=== PATIENT | female | born 1995 | race Caucasian/White ===

== ENCOUNTER 2019-05-07 13:36 | Emergency (ER) | payer BC ==
[2019-05-07] MEDS ORDERED: Sodium Chloride 0.9% 10 ML Syringe FLUSH PRN (14:18)
[2019-05-07] MEDS ORDERED: Metoclopramide 10 MG/2 ML SDV IVPUSH ONE (14:18)
[2019-05-07] MEDS ORDERED: Lactated Ringers 1,000 ML IV ONE (14:18)
[2019-05-07] MEDS ORDERED: HYDROmorphone 1 MG/ML Syringe IVPUSH ONE (14:18)
[2019-05-07] MEDS ORDERED: Diatrizoate Meglumine/Diatrizoate Sodium 37% 120 ML Bottle PO ONE (15:11)
[2019-05-07] MEDS ORDERED: Sodium Chloride 0.9% 10 ML Syringe FLUSH ONE (15:11)
[2019-05-07] MEDS ORDERED: Iopamidol 612 MG/ML 100 ML Bottle IVPUSH ONE (15:11)
--- NOTE | 2019-05-07 15:29 | EDM.PDOC ---
ED HPI GENERAL MEDICAL PROBLEM - General Chief Complaint: Abdominal Pain Stated Complaint: ABDOMINAL PAIN Time Seen by Provider: 05/07/19 14:13 Source of Information: Reports: Patient History Limitations: Reports: No Limitations - History of Present Illness INITIAL COMMENTS - FREE TEXT/NARRATIVE: 23-year-old female presents for evaluation and treatment of abdominal pain. Patient reports that the pain started suddenly last night. States that it started around her periumbilical region. Is now radiating into her right lower quadrant and right flank. Describes the stomach pain as cramping to the abdomen and dull achiness to the right side. Has taken advil with no relief. She reports associated symptoms of nausea and a decreased appetite. States that movement seems to greatly exacerbate the abdominal pain. No fevers, vomiting or urinary symptoms. Last bowel movement was Wednesday. No diarrhea and no recent blood in the stool. Patient no previous surgeries to her abdomen. Last intake was last around suppertime. LMP just ended. 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 1000 mg Right Abdomen Pain Score (Numeric/FACES): 5 - Related Data Allergies Allergy/AdvReac Type Severity Reaction Status Date / Time tree nut Allergy Airway Verified 10/19/16 16:04 Tightness almonds Allergy Airway Uncoded 10/19/16 16:04 Tightness peanuts Allergy Airway Uncoded 10/19/16 16:04 Tightness Home Meds: Home Meds Naproxen 500 mg PO BID PRN #20 tablet 10/19/16 [Rx] FLUoxetine HCl [Prozac] 0 mg PO DAILY 05/07/19 [History] metFORMIN [Glucophage XR] 1,000 mg PO DAILY 05/07/19 [History] Past Medical History - Past Health History Medical/Surgical History: Denies Medical/Surgical History Musculoskeletal History: Reports: Back Pain, Chronic Psychiatric History: Reports: Anxiety Social & Family History - Tobacco Use Smoking Status *Q: Current Every Day Smoker Years of Tobacco use: 10 Packs/Tins Daily: 0.4 - Caffeine Use Caffeine Use: Reports: Coffee, Tea - Recreational Drug Use Recreational Drug Use: No - Living Situation & Occupation Living situation: Reports: with Significant Other Occupation: Employed ED ROS GENERAL - Review of Systems Review Of Systems: See Below Constitutional: Reports: Chills, Decreased Appetite. Denies: Fever GI/Abdominal: Reports: Abdominal Pain (RLQ and right flank), Nausea. Denies: Vomiting : Reports: Flank Pain (right). Denies: Dysuria ED EXAM, GI/ABD - Physical Exam Exam: See Below Exam Limited By: No Limitations General Appearance: Alert, WD/WN, No Apparent Distress Respiratory/Chest: No Respiratory Distress, Lungs Clear, Normal Breath Sounds Cardiovascular: Normal Peripheral Pulses, Regular Rate, Rhythm, No Murmur GI/Abdominal Exam: Normal Bowel Sounds, Soft, Guarding, Tender (RLQ at [place]urn[place] point), Other (pain with heel percussion, + meli and obturator sign) . No: Rebound Neurological: Alert, Oriented, Normal Cognition Psychiatric: Normal Affect, Normal Mood Skin Exam: Warm, Dry, Normal Color Course - Vital Signs Last Recorded V/S: Last Vital Signs Temp 97.1 F 05/07/19 18:50 Pulse 60 05/07/19 18:50 Resp 16 05/07/19 18:50 BP 101/79 05/07/19 18:50 Pulse Ox 96 05/07/19 18:50 - Orders/Labs/Meds Labs: Laboratory Tests 05/07/19 05/07/19 05/07/19 Range/Units 14:40 14:40 14:40 WBC 6.91 (3.98-10.04) K/mm3 RBC 4.94 (3.98-5.22) M/mm3 Hgb 15.1 (11.2-15.7) gm/L Hct 44.0 (34.1-44.9) % MCV 89.1 (79.4-94.8) fl MCH 30.6 (25.6-32.2) pg MCHC 34.3 (32.2-35.5) g/dl RDW Std Deviation 42.4 (36.4-46.3) fL Plt Count 353 (182-369) K/mm3 MPV 9.8 (9.4-12.3) fl Neutrophils % (Manual) 56 (40-60) % Band Neutrophils % 0 (0-10) % Lymphocytes % (Manual) 35 (20-40) % Atypical Lymphs % 0 % Monocytes % (Manual) 9 (2-10) % Eosinophils % (Manual) 0 L (0.7-5.8) % Basophils % (Manual) 0 L (0.1-1.2) Platelet Estimate Adequate RBC Morph Comment Normal Sodium 139 (136-145) mEq/L Potassium 3.9 (3.5-5.1) mEq/L Chloride 105 (98-107) mEq/L Carbon Dioxide 24 (21-32) mEq/L Anion Gap 13.9 (5-15) BUN 9 (7-18) mg/dL Creatinine 0.7 (0.55-1.02) mg/dL Est Cr Clr Drug Dosing 106.09 mL/min Estimated GFR (MDRD) > 60 (>60) mL/min BUN/Creatinine Ratio 12.9 L (14-18) Glucose 88 (74-106) mg/dL Calcium 9.0 (8.5-10.1) mg/dL Total Bilirubin 0.6 (0.2-1.0) mg/dL AST 16 (15-37) U/L ALT 18 (14-59) U/L Alkaline Phosphatase 70 (46-116) U/L C-Reactive Protein < 0.2 (<1.0) mg/dL Total Protein 6.6 (6.4-8.2) g/dl Albumin 3.6 (3.4-5.0) g/dl Globulin 3.0 gm/dL Albumin/Globulin Ratio 1.2 (1-2) Lipase 92 (73-393) U/L HCG, Qual Negative (NEGATIVE) Urine Color (Yellow) Urine Appearance (Clear) Urine pH (5.0-8.0) Ur Specific Lovely (1.005-1.030) Urine Protein (Negative) Urine Glucose (UA) (Negative) Urine Ketones (Negative) Urine Occult Blood (Negative) Urine Nitrite (Negative) Urine Bilirubin (Negative) Urine Urobilinogen (0.2-1.0) Ur Leukocyte Esterase (Negative) Urine RBC (0-5) /hpf Urine WBC (0-5) /hpf Ur Epithelial Cells (0-5) /hpf Urine Bacteria (FEW) /hpf Urine Mucus (FEW) /hpf 05/07/19 Range/Units 18:25 WBC (3.98-10.04) K/mm3 RBC (3.98-5.22) M/mm3 Hgb (11.2-15.7) gm/L Hct (34.1-44.9) % MCV (79.4-94.8) fl MCH (25.6-32.2) pg MCHC (32.2-35.5) g/dl RDW Std Deviation (36.4-46.3) fL Plt Count (182-369) K/mm3 MPV (9.4-12.3) fl Neutrophils % (Manual) (40-60) % Band Neutrophils % (0-10) % Lymphocytes % (Manual) (20-40) % Atypical Lymphs % % Monocytes % (Manual) (2-10) % Eosinophils % (Manual) (0.7-5.8) % Basophils % (Manual) (0.1-1.2) Platelet Estimate RBC Morph Comment Sodium (136-145) mEq/L Potassium (3.5-5.1) mEq/L Chloride (98-107) mEq/L Carbon Dioxide (21-32) mEq/L Anion Gap (5-15) BUN (7-18) mg/dL Creatinine (0.55-1.02) mg/dL Est Cr Clr Drug Dosing mL/min Estimated GFR (MDRD) (>60) mL/min BUN/Creatinine Ratio (14-18) Glucose (74-106) mg/dL Calcium (8.5-10.1) mg/dL Total Bilirubin (0.2-1.0) mg/dL AST (15-37) U/L ALT (14-59) U/L Alkaline Phosphatase (46-116) U/L C-Reactive Protein (<1.0) mg/dL Total Protein (6.4-8.2) g/dl Albumin (3.4-5.0) g/dl Globulin gm/dL Albumin/Globulin Ratio (1-2) Lipase (73-393) U/L HCG, Qual (NEGATIVE) Urine Color Light yellow (Yellow) Urine Appearance Clear (Clear) Urine pH 6.5 (5.0-8.0) Ur Specific Lovely 1.010 (1.005-1.030) Urine Protein Negative (Negative) Urine Glucose (UA) Negative (Negative) Urine Ketones Negative (Negative) Urine Occult Blood Trace-intact H (Negative) Urine Nitrite Negative (Negative) Urine Bilirubin Negative (Negative) Urine Urobilinogen 0.2 (0.2-1.0) Ur Leukocyte Esterase Negative (Negative) Urine RBC 0-5 (0-5) /hpf Urine WBC Not seen (0-5) /hpf Ur Epithelial Cells 0-5 (0-5) /hpf Urine Bacteria Not seen (FEW) /hpf Urine Mucus Not seen (FEW) /hpf Meds: Medications Discontinued Medications Generic Name Dose Route Start Last Admin Trade Name Freq PRN Reason Stop Dose Admin Diatrizoate Meglum/Diatrizoate Sod 90 ml 05/07/19 15:11 05/07/19 16:14 Gastrografin 37% PO 05/07/19 15:12 90 ml ONETIME ONE Administration Hydromorphone HCl 1 mg 05/07/19 14:18 05/07/19 14:45 Dilaudid IVPUSH 05/07/19 14:19 1 mg ONETIME ONE Administration Lactated Ringer's 1,000 mls @ 999 mls/hr 05/07/19 14:18 05/07/19 14:47 Ringers, Lactated IV 05/07/19 15:18 999 mls/hr .BOLUS ONE Administration Iopamidol 100 ml 05/07/19 15:11 05/07/19 16:10 Isovue-300 (61%) IVPUSH 05/07/19 15:12 100 ml ONETIME ONE Administration Ketorolac Tromethamine 30 mg 05/07/19 17:23 05/07/19 18:09 Toradol IVPUSH 05/07/19 17:24 30 mg ONETIME ONE Administration Metoclopramide HCl 7.5 mg 05/07/19 14:18 05/07/19 14:43 Reglan IVPUSH 05/07/19 14:19 7.5 mg ONETIME ONE Administration Sodium Chloride 10 ml 05/07/19 14:18 05/07/19 14:40 Saline Flush FLUSH 10 ml ASDIRECTED PRN Administration Keep Vein Open Sodium Chloride 10 ml 05/07/19 15:11 05/07/19 16:14 Saline Flush FLUSH 05/07/19 15:12 10 ml ONETIME ONE Administration - Radiology Interpretation Free Text/Narrative:: CT abdomen and pelvis Technique: Multiple axial sections were obtained from above the dome of the diaphragm inferiorly through the pubic symphysis. Intravenous and oral contrast was utilized. Comparison: Previous abdominal and pelvic CT study of 08/17/13. Findings: Visualized lung bases show nothing acute. Liver contains no focal abnormality. Gallbladder contains no calcified gallstones. Spleen appears within normal limits. Adrenal glands show no nodule. Pancreas is within normal limits. Kidneys show symmetric contrast enhancement without hydronephrosis or mass. Aorta shows no aneurysm. No retroperitoneal adenopathy or mesenteric abnormalities are seen. Appendix is seen which is normal in size. No pelvic mass or adenopathy is seen. No free fluid or inflammatory change is seen. No abdominal wall hernia is appreciated. Bone window settings were obtained which show spondylolytic defects at L5-S1 without spondylolisthesis. Impression: 1. Spondylitic defects at L5-S1 with no spondylolisthesis. 2. CT study of the abdomen and pelvis shows nothing acute. No significant change is appreciated from previous CT exam. - Re-Assessments/Exams Free Text/Narrative Re-Assessment/Exam: 05/07/19 18:30 Discussed labs and imaging with the patient. At this point etiology of her pain is not quite clear. Discussed obtaining a transvaginal ultrasound to rule out ovarian etiology. No abnormalities were appreciated on CT. Patient reports she has a history of PCOS and has had ruptured cysts in the past, this dose not feel similar. She does not feel this is ovarian in etiology, declines transvaginal ultrasound. Her pain is higher than I would expect for an ovarian cyst. Will discharge home with recommendations to follow-up in the clinic. Return if symptoms change or worsen. Offered medication for pain at home, she declined. Discharge instructions as documented. Departure - Departure Time of Disposition: 18:42 Disposition: Home, Self-Care 01 Condition: Fair Clinical Impression: Abdominal pain - Discharge Information *PRESCRIPTION DRUG MONITORING PROGRAM REVIEWED*: No *COPY OF PRESCRIPTION DRUG MONITORING REPORT IN PATIENT ALEXY: No Instructions: Abdominal Pain, Adult, [id number] Referrals: PCP,None [Primary Care Provider] - Forms: ED Department Discharge Additional Instructions: OTC tylenol or motrin as needed for pain. Recommend a probiotic, these are available OTC. Recommend clear fluids and a bland diet as tolerated. Inman diet recommendations include bread, rice, applesauce, toast, bananas, etc. Follow-up with your PCP this week for a recheck of your symptoms. Please return to the ER should your symptoms change or worsen.
--- NOTE | 2019-05-07 16:34 | CT ---
CT abdomen and pelvis Technique: Multiple axial sections were obtained from above the dome of the diaphragm inferiorly through the pubic symphysis. Intravenous and oral contrast was utilized. Comparison: Previous abdominal and pelvic CT study of 08/17/13. Findings: Visualized lung bases show nothing acute. Liver contains no focal abnormality. Gallbladder contains no calcified gallstones. Spleen appears within normal limits. Adrenal glands show no nodule. Pancreas is within normal limits. Kidneys show symmetric contrast enhancement without hydronephrosis or mass. Aorta shows no aneurysm. No retroperitoneal adenopathy or mesenteric abnormalities are seen. Appendix is seen which is normal in size. No pelvic mass or adenopathy is seen. No free fluid or inflammatory change is seen. No abdominal wall hernia is appreciated. Bone window settings were obtained which show spondylolytic defects at L5-S1 without spondylolisthesis. Impression: 1. Spondylitic defects at L5-S1 with no spondylolisthesis. 2. CT study of the abdomen and pelvis shows nothing acute. No significant change is appreciated from previous CT exam. Diagnostic code #2
[2019-05-07] MEDS ORDERED: Ketorolac 30 MG/ML SDV IVPUSH ONE (17:23)
[2019-05-07 18:56] VITALS: BP 101/79
== END 2019-05-07 18:50 | disposition home or self-care (01) ==
LOC: JD.ED 13:36
DX: R10.31 Right lower quadrant pain (principal); F17.210 Nicotine dependence, cigarettes, uncomplicated; F41.9 Anxiety disorder, unspecified; Z79.899 Other long term (current) drug therapy; Z91.018 Allergy to other foods; Z91.010 Allergy to peanuts
CPT/HCPCS: 36415; 74177; 80053; 81001; 83690; 84703; 85007; 85027; 86140; 96361; 96374; 96375; 99284; J1170; J1885; J2765; J7120; Q9963; Q9967

== ENCOUNTER 2021-02-11 13:34 | Emergency (ER) | payer OTHER ==
[2021-02-11] MEDS ORDERED: Ketorolac 30 MG/ML SDV IVPUSH ONE (13:47)
[2021-02-11] MEDS ORDERED: Orphenadrine 100 MG Tab.ER PO ONE (13:47)
[2021-02-11] MEDS ORDERED: Dexamethasone 10 MG/ML SDV IVPUSH ONE (13:51)
--- NOTE | 2021-02-11 13:55 | EDM.PDOC ---
ED HPI GENERAL MEDICAL PROBLEM - General Chief Complaint: Back Pain or Injury Stated Complaint: [facility] Time Seen by Provider: 02/11/21 13:39 Source of Information: Reports: Patient, EMS Notes Reviewed, RN Notes Reviewed History Limitations: Reports: No Limitations - History of Present Illness INITIAL COMMENTS - FREE TEXT/NARRATIVE: Patient is a 25-year-old female who presents to the ED for evaluation of her acute low back pain. Patient presents to the ER via [facility]. Patient notes that she has had on and off pains with her back for some time however she developed back tightness yesterday, and she notes that today she had trouble even getting up out of bed, she states that it is very very painful to bear any sort of weight at all. She notes some pain that is shooting into her left leg. She states that she can normally go to the chiropractor, and get some massages and this seems to take care of most of it. 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 She denies any trauma to the area, or any near slips trips or falls. She denies any urinary or fecal incontinence, and she has no saddle anesthesia. Primary care provider is Vilma Morse. Patient denies any other sick-like symptoms, fever/chills, cough/shortness of breath, nausea/vomiting/diarrhea. Patient further denies any chance of on today's visit. 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 (with 50mcg Fentanyl given by EMS), See EMS Report Back Pain Score (Numeric/FACES): 8 - Related Data Allergies Allergy/AdvReac Type Severity Reaction Status Date / Time tree nut Allergy Airway Verified 02/11/21 13:46 Tightness peanuts Allergy Airway Uncoded 02/11/21 13:46 Tightness Home Meds: Home Meds FLUoxetine HCl [Prozac] 0 mg PO DAILY 05/07/19 [History] Acetaminophen/oxyCODONE [Percocet 325-5 MG] 1 each PO Q6H PRN #12 tab 02/11/21 [Rx] DULoxetine [Cymbalta] 30 mg PO DAILY 02/11/21 [History] Diclofenac Sodium [Voltaren] 75 mg PO BIDMEALS #14 tab.cr 02/11/21 [Rx] Orphenadrine [Norflex] 100 mg PO BID PRN #20 tab 02/11/21 [Rx] predniSONE 20 mg PO ASDIRECTED #15 tab 02/11/21 [Rx] Past Medical History - Past Health History Medical/Surgical History: Denies Medical/Surgical History Musculoskeletal History: Reports: Back Pain, Chronic Psychiatric History: Reports: Anxiety Social & Family History - Caffeine Use Caffeine Use: Reports: Coffee, Tea - Living Situation & Occupation Living situation: Reports: with Significant Other Occupation: Employed ED ROS GENERAL - Review of Systems Review Of Systems: Comprehensive ROS is negative, except as noted in HPI. ED EXAM,LOWER BACK PAIN/INJURY - Physical Exam Exam: See Below Exam Limited By: No Limitations General Appearance: Alert, WD/WN, No Apparent Distress Respiratory/Chest: No Respiratory Distress, Lungs Clear, Normal Breath Sounds, No Accessory Muscle Use, Chest Non-Tender Cardiovascular: Normal Peripheral Pulses, Regular Rate, Rhythm, No Edema GI/Abdominal: Normal Bowel Sounds, Soft, Non-Tender, No Distention, No Mass Extremities: Normal Inspection, Normal Capillary Refill Neurological: Alert, Normal Mood/Affect, Normal Dorsiflexion, Normal Plantar Flexion, No Motor/Sensory Deficits, Straight Leg Raise (L). No: Straight Leg Raise (R), Saddle Anesthesia Psychiatric: Normal Affect, Normal Mood Skin Exam: Warm, Dry, Intact, Normal Color, No Rash Course - Vital Signs Last Recorded V/S: Last Vital Signs Temp 97.7 F 02/11/21 15:30 Pulse 70 02/11/21 15:30 Resp 16 02/11/21 15:30 BP 106/67 02/11/21 15:30 Pulse Ox 98 02/11/21 15:30 - Orders/Labs/Meds Meds: Medications Discontinued Medications Generic Name Dose Route Start Last Admin Trade Name Crispinq PRN Reason Stop Dose Admin Dexamethasone 10 mg 02/11/21 13:51 02/11/21 14:01 Dexamethasone 10 Mg/Ml Sdv IVPUSH 02/11/21 13:52 10 mg ONETIME ONE Administration Diazepam 5 mg 02/11/21 14:44 02/11/21 15:34 Diazepam 10 Mg/2 Ml Syringe IVPUSH 02/11/21 14:45 5 mg ONETIME ONE Administration Hydromorphone HCl 0.5 mg 02/11/21 14:45 02/11/21 15:36 Hydromorphone 0.5 Mg/0.5 Ml Syringe IVPUSH 02/11/21 14:46 0.5 mg ONETIME ONE Administration Hydromorphone HCl 0.5 mg 02/11/21 16:06 Hydromorphone 0.5 Mg/0.5 Ml Syringe IVPUSH 02/11/21 16:07 ONETIME ONE Ketorolac Tromethamine 30 mg 02/11/21 13:47 02/11/21 13:58 Ketorolac 30 Mg/Ml Sdv IVPUSH 02/11/21 13:48 30 mg ONETIME ONE Administration Orphenadrine Citrate 100 mg 02/11/21 13:47 02/11/21 13:57 Orphenadrine 100 Mg Tab.Er PO 02/11/21 13:48 100 mg ONETIME ONE Administration - Re-Assessments/Exams Free Text/Narrative Re-Assessment/Exam: 02/11/21 13:54 Patient presents to the ED for her acute low back pain. We will go ahead and get basic x-rays to rule out any bony abnormalities, we will give her some meds for pain management as well. 02/11/21 14:46 Patient was reassessed at bedside, and she still not able to move much at all due to the pain. X-rays were obtained and demonstrate no acute focal abnormalities appreciable myself or Dr. Rayo. He suggested trying 5 mg of Valium and 0.5 mg Dilaudid for ongoing pain management. Have ordered this to try with the patient. 02/11/21 15:03 Patient's x-ray has been read, there is no acute abnormalities appreciated. 02/11/21 16:07 Patient was given the above medications, and she was sat up at the edge of the bedside, and she can only sit up to about 45 degrees and states that she is having quite a bit of pain. We will go ahead and repeat 0.5 mg IV Dilaudid again for pain management and reassess after those meds have been given. Departure - Departure Time of Disposition: 16:43 Disposition: Home, Self-Care 01 Condition: Good Clinical Impression: Low back pain Qualifiers: Chronicity: acute Back pain laterality: left Sciatica presence: without sciatica Qualified Code(s): M54.5 - Low back pain - Discharge Information *PRESCRIPTION DRUG MONITORING PROGRAM REVIEWED*: Yes *COPY OF PRESCRIPTION DRUG MONITORING REPORT IN PATIENT ALEXY: No Prescriptions: Orphenadrine [Norflex] 100 mg PO BID PRN #20 tab PRN Reason: Spasms Acetaminophen/oxyCODONE [Percocet 325-5 MG] 1 each PO Q6H PRN #12 tab PRN Reason: Pain predniSONE 20 mg PO ASDIRECTED #15 tab Diclofenac Sodium [Voltaren] 75 mg PO BIDMEALS #14 tab.cr Instructions: Acute Back Pain, Adult Forms: ED Department Discharge Additional Instructions: You were evaluated in the ER today for your acute back pain. You were given a multitude of IV medications, along with some muscle relaxers, and you were able to gain a little bit of mobility in your back. X-ray also demonstrated no acute bony abnormalities. You have been prescribed a couple different medications and you will need to take these as directed; 1. prednisone, 1 tablet 2 times a day for 5 days, then 1 tablet once a day x5 days. 2. an anti-inflammatory, voltaren (diclofenac), 1 tablet 2 times a day with meals. 3. Norflex, muscle relaxer, 1 tablet 2 times a day as needed for spasms, 4. A prescription for a strong pain medication, Oxycodone/acetaminophen 5/325 mg, please take 1 tab every 6 hours as needed for pain not relieved by Tylenol or ibuprofen alone. Please note this medication does contain Tylenol in it, so do not take more than 4000 mg in a 24-hour time span. These medications can be addictive, so please take as few as possible to achieve adequate pain control. These meds can also be quite constipating, recommend that you increase your oral fluid intake and take a stool softener like MiraLAX while taking these medications. Do not drive while taking this medication. Please give these medications a good 48 to 72 hours to take effect. If you not feeling much better in roughly 3 days time, highly recommend you seek care for reevaluation. Please go home, trying to rest and relax and not do a lot of strenuous activity over the next few days to allow your back time to heal. You may also try ice or heat to the area as well to help provide further pain relief. Please return to the ER at any time if symptoms change or worsen. Sepsis Event Note (ED) - Evaluation Sepsis Screening Result: No Definite Risk - Focused Exam Vital Signs: Vital Signs Temp Pulse Resp BP Pulse Ox 02/11/21 15:30 97.7 F 70 16 106/67 98 02/11/21 13:38 97.8 F 77 18 133/87 94 L
[2021-02-11] MEDS ORDERED: HYDROmorphone 0.5 MG/0.5 ML Syringe IVPUSH ONE ×2 (14:45→16:06)
--- NOTE | 2021-02-11 14:48 | CR ---
Lumbar spine: AP, lateral and coned-down lateral view centered to the lumbosacral junction were obtained. Comparison: No prior lumbar spine imaging is available. Vertebral body heights and disc spaces are maintained. Pedicles are intact. Visualized transverse and spinous processes are intact. Sacroiliac joints appear within normal limits. No subluxation or fracture is appreciated. Impression: 1. Nothing acute is seen on 3 view lumbar spine study. Diagnostic code #1
[2021-02-11 17:21] VITALS: BP 115/89; PULSE 69
== END 2021-02-11 17:20 | disposition home or self-care (01) ==
LOC: JD.ED 13:34
DX: M54.5 Low back pain (principal); Z91.010 Allergy to peanuts; Z91.018 Allergy to other foods
CPT/HCPCS: 72100; 96374; 96375; 96376; 99284; A9270; J1100; J1170; J1885; J3360

== ENCOUNTER 2022-01-20 15:59 | Observation (INO) | payer OTHER ==
[2022-01-20] MEDS ORDERED: HYDROmorphone 0.5 MG/0.5 ML Syringe IVPUSH ONE (16:43)
[2022-01-20] MEDS ORDERED: Ondansetron 4 MG/2 ML SDV IVPUSH ONE (16:44)
[2022-01-20] MEDS ORDERED: Dextrose 5%-0.9% NaCl 1,000 ML IV SCH (16:45)
[2022-01-20] MEDS ORDERED: Iopamidol 612 MG/ML 100 ML Bottle IVPUSH ONE (16:53)
[2022-01-20] MEDS ORDERED: Sodium Chloride 0.9% 100 ML IV SCH (17:00)
[2022-01-20] MEDS: Sodium Chloride 0.9% 10 ML Syringe FLUSH ONE ×2 (17:32→18:24)
[2022-01-20] MEDS ORDERED: Sodium Chloride 0.9% 10 ML Syringe FLUSH ONE (18:23)
[2022-01-20] MEDS ORDERED: Ketorolac 30 MG/ML SDV IVPUSH SCH (20:00)
[2022-01-20] MEDS: Dextrose 5%-0.9% NaCl 1,000 ML IV SCH (21:28)
[2022-01-20] MEDS: HYDROmorphone 0.5 MG/0.5 ML Syringe IVPUSH PRN (21:45)
[2022-01-20] MEDS: Ondansetron 4 MG/2 ML SDV IVPUSH PRN (23:52)
[2022-01-21] MEDS: Dextrose 5%-0.9% NaCl 1,000 ML IV SCH ×2 (03:00→11:50)
[2022-01-21] MEDS: HYDROmorphone 0.5 MG/0.5 ML Syringe IVPUSH PRN ×3 (04:19→15:33)
[2022-01-21] MEDS: Ondansetron 4 MG/2 ML SDV IVPUSH PRN ×2 (07:22→15:33)
[2022-01-21] MEDS ORDERED: oxyCODONE 5 MG Tab PO PRN ×3 (08:06→16:52)
[2022-01-21] MEDS ORDERED: Acetaminophen 325 MG Tab PO PRN (08:06)
[2022-01-21] MEDS ORDERED: Simethicone 80 MG Tab.Chew PO PRN (08:07)
[2022-01-21] MEDS: Docusate Sodium 100 MG Cap PO SCH ×2 (08:46→20:15)
[2022-01-21] MEDS ORDERED: DULoxetine 30 MG Cap PO SCH ×2 (09:00→21:00)
[2022-01-21] MEDS ORDERED: oxyCODONE 5 MG Tab PO ONE (11:30)
[2022-01-21] MEDS ORDERED: FLU Vacc QS2021-22 36MOS UP/PF 60 MCG/0.5 ML Syringe IM ONE ×2 (12:00→20:30)
[2022-01-21 16:28] VITALS: BP 132/90; PULSE 78
[2022-01-21] MEDS ORDERED: Flumazenil 0.1 MG/ML 5 ML MDV ONE (20:04)
== END 2022-01-21 21:05 | disposition home or self-care (01) ==
LOC: JD.ED 15:59 → JD.MS 19:57
PROVIDERS: ADMIT Emergency Medicine; ATTEND Obstetrics & Gynecology
DX: N98.1 Hyperstimulation of ovaries (principal); F41.9 Anxiety disorder, unspecified; Z91.010 Allergy to peanuts; Z91.018 Allergy to other foods; Z98.890 Other specified postprocedural states; Z79.899 Other long term (current) drug therapy; Z20.822 Contact with and (suspected) exposure to COVID-19
CPT/HCPCS: 36415; 74177; 80048; 80053; 81001; 83735; 84703; 85025; 85027; 85610; 85730; 86140; 87635; 90471; 90686; 96374; 96375; 96376; 99285; A9270; G0378; J1170; J1885; J2405; J7042; Q9967; G0008; U0002

== ENCOUNTER 2024-02-07 16:20 | Emergency (ER) | payer OTHER ==
[2024-02-07] MEDS: Sodium Chloride 0.9% 50 ML ONE (17:16)
[2024-02-07] MEDS: Tranexamic Acid 1,000 MG/10 ML Vial IV ONE (17:16)
[2024-02-07 17:30] LABS: BASOPHILS ABSOLUTE AUTO 0.1 K/mm3 (0.0-0.2); BASOPHILS PERCENT AUTO 0.9 % (0.0-1.0); EOSINOPHILS ABSOLUTE AUTO 0.1 K/mm3 (0.0-0.4); EOSINOPHILS PERCENT AUTO 1.3 % (0.0-6.0); HEMATOCRIT 44.5 % (37.0-47.0); HEMOGLOBIN 15.5 gm/dl (12.0-16.0); IMMATURE GRAN ABSOLUTE AUTO 0.01 K/mm3 (0.00-0.05); IMMATURE GRAN PERCENT AUTO 0.1 % (0.0-0.4); LYMPHOCYTES PERCENT AUTO 43.8 % (24.0-44.0); MEAN CORPUSCULAR HEMOGLOBIN 30.1 pg (28.0-32.0); MEAN CORPUSCULAR HGB CONC 34.8 g/dl (32.0-36.0); MEAN CORPUSCULAR VOLUME 86.4 fl (83.0-99.0); MEAN PLATELET VOLUME 9.8 fl (9.4-12.3); MONOCYTES ABSOLUTE AUTO 0.6 K/mm3 (0.0-0.8); MONOCYTES PERCENT AUTO 8.9 % (0.0-8.0); PLATELET COUNT,PLT 343 K/mm3 (150-400); RED BLOOD CELL COUNT 5.15 M/mm3 (4.10-5.30); WHITE BLOOD CELL COUNT,WBC 6.76 K/mm3 (3.9-11.3)
[2024-02-07 17:47] LABS: A/G RATIO 1.2 (1-2); ALBUMIN 4.1 g/dl (3.4-5.0); ANION GAP 14.8 (5-15); BILIRUBIN TOTAL 0.8 mg/dL (0.2-1.0); BUN/CREATININE RATIO 8.9 (14-18); CREATININE 0.9 mg/dL (0.55-1.02); EST CRCL DRUG DOSING (CG) 78.93 mL/min; POTASSIUM,K 3.8 mEq/L (3.5-5.1); PROTEIN TOTAL,TP 7.6 g/dl (6.4-8.2)
[2024-02-07 18:38] VITALS: BP 118/87; PULSE 87
== END 2024-02-07 18:37 | disposition home or self-care (01) ==
LOC: JD.ED 16:20
DX: O20.9 Hemorrhage in early pregnancy, unspecified (principal); Z3A.00 Weeks of gestation of pregnancy not specified
CPT/HCPCS: 36415; 76830; 80053; 83540; 84703; 85025; 96374; 99284; J3490

== ENCOUNTER 2024-03-27 10:14 | Emergency (ER) | payer OTHER ==
[2024-03-27 10:30] VITALS: PULSE 84
[2024-03-27 11:02] LABS: BASOPHILS ABSOLUTE AUTO 0.1 K/mm3 (0.0-0.2); BASOPHILS PERCENT AUTO 0.7 % (0.0-1.0); EOSINOPHILS ABSOLUTE AUTO 0.1 K/mm3 (0.0-0.4); EOSINOPHILS PERCENT AUTO 1.6 % (0.0-6.0); HEMATOCRIT 42.9 % (37.0-47.0); HEMOGLOBIN 14.5 gm/dl (12.0-16.0); IMMATURE GRAN ABSOLUTE AUTO 0.02 K/mm3 (0.00-0.05); IMMATURE GRAN PERCENT AUTO 0.3 % (0.0-0.4); LYMPHOCYTES ABSOLUTE AUTO 3.1 K/mm3 (1.0-4.8); LYMPHOCYTES PERCENT AUTO 40.1 % (24.0-44.0); MEAN CORPUSCULAR HEMOGLOBIN 29.7 pg (28.0-32.0); MEAN CORPUSCULAR HGB CONC 33.8 g/dl (32.0-36.0); MEAN CORPUSCULAR VOLUME 87.9 fl (83.0-99.0); MEAN PLATELET VOLUME 9.8 fl (9.4-12.3); MONOCYTES ABSOLUTE AUTO 0.5 K/mm3 (0.0-0.8); MONOCYTES PERCENT AUTO 6.9 % (0.0-8.0); NEUTROPHILS ABSOLUTE AUTO 3.9 K/mm3 (1.8-7.7); NEUTROPHILS PERCENT AUTO 50.4 % (41.0-71.0); PLATELET COUNT,PLT 350 K/mm3 (150-400); RED BLOOD CELL COUNT 4.88 M/mm3 (4.10-5.30); WHITE BLOOD CELL COUNT,WBC 7.65 K/mm3 (3.9-11.3)
[2024-03-27 11:36] LABS: A/G RATIO 1.2 (1-2); ALANINE AMINOTRANSFERASE,ALT 22 U/L (14-59); ALBUMIN 3.7 g/dl (3.4-5.0); ALKALINE PHOSPHATASE 79 U/L (46-116); ANION GAP 13.4 (5-15); ASPARTATE AMNIOTRANSFERASE,AST 15 U/L (15-37); BILIRUBIN TOTAL 0.7 mg/dL (0.2-1.0); BLOOD UREA NITROGEN,BUN 7 mg/dL (7-18); BUN/CREATININE RATIO 8.8 (14-18); CALCIUM 9.3 mg/dL (8.5-10.1); CARBON DIOXIDE,CO2 26 mEq/L (21-32); CHLORIDE,CL 104 mEq/L (98-107); CREATININE 0.8 mg/dL (0.55-1.02); ESTIMATED GFR 102 mL/min (>60); GLUCOSE RANDOM 90 mg/dL (70-99); LIPASE 47 U/L (16-77); POTASSIUM,K 4.4 mEq/L (3.5-5.1); PROTEIN TOTAL,TP 6.7 g/dl (6.4-8.2); SODIUM,NA 139 mEq/L (136-145)
[2024-03-27] MEDS: Ketorolac 30 MG/ML SDV IVPUSH ONE (12:37)
[2024-03-27] MEDS: Ketorolac 60 MG/2 ML SDV IM ONE (12:37)
== END 2024-03-27 12:45 | disposition home or self-care (01) ==
LOC: JD.ED 10:14
DX: G89.18 Other acute postprocedural pain (principal); M25.511 Pain in right shoulder; Z86.16 Personal history of COVID-19; Z79.899 Other long term (current) drug therapy
CPT/HCPCS: 36415; 73030; 74018; 80053; 83690; 83735; 85025; 96372; 99284; J1885